=== PATIENT | female | born 1950 | race Asian ===

== ENCOUNTER 2019-04-04 05:53 | Day surgery (SDC) | payer MEDICARE ==
[2019-04-04] MEDS ORDERED: Phenylephrine 2.5% Ophth Soln 5 ML BOT ONE (05:59)
[2019-04-04] MEDS ORDERED: Cyclopentolate 1% Opth Drop 2 ML BOT ONE (05:59)
[2019-04-04] MEDS ORDERED: EPINEPHrine 0.3 MG in Ophthalmic Irrigation Solution 500 ML IVP SCH (06:00)
[2019-04-04] MEDS ORDERED: Midazolam HCl 2 mg/2 ml Vial ONE (06:35)
[2019-04-04] MEDS ORDERED: Fentanyl 100 MCG/2 ML VIAL ONE (06:35)
[2019-04-04] MEDS ORDERED: PROPOFOL 20 ML ONE (06:35)
[2019-04-04] MEDS ORDERED: Bupivacaine 10 ML VIAL ONE (10:19)
[2019-04-04] MEDS ORDERED: Triamcinolone 40 MG/ML VIAL ONE (10:19)
[2019-04-04] MEDS ORDERED: Maxitrol 0.1% Opth Oint 3.5 GM TUBE ONE (10:19)
[2019-04-04] MEDS ORDERED: Lidocaine 4% PF 5 ML AMP ONE (10:19)
[2019-04-04] MEDS ORDERED: Lidocaine 1% PF 5 ML VIAL ONE (10:19)
[2019-04-04] MEDS ORDERED: Indocyanine Green 25 MG/10 ML VIAL ONE (10:19)
[2019-04-04] MEDS ORDERED: CEFAZOLIN 1 GM VIAL ONE (10:19)
--- NOTE | 2019-04-04 11:53 | OP ---
DATE OF PROCEDURE: 04/04/2019 PRINCIPAL PREOPERATIVE DIAGNOSIS: Epiretinal membrane, right eye. POSTOPERATIVE DIAGNOSIS: Epiretinal membrane, right eye. PROCEDURES PERFORMED: 1. 25-gauge pars plana vitrectomy, right eye. 2. Epiretinal membrane/internal limiting membrane complex removal, right eye. ESTIMATED BLOOD LOSS: None. SPECIMENS REMOVED: None. COMPLICATIONS: None. ANESTHESIA: MAC with retrobulbar block. DESCRIPTION OF PROCEDURE: The patient was identified in the preoperative holding area, where the correct eye being the right eye was marked for surgery. The patient was taken to the operating room, where MAC anesthesia was induced. A retrobulbar block was administered to the right eye. The block consisted of 1:1 ratio of 4% lidocaine and 0.75% Marcaine. A total of 5 mL was administered. The right eye was then prepped and draped in the usual sterile ophthalmic fashion for surgery. A wire lid speculum was placed. A standard 25-gauge pars plana vitrectomy platform was fashioned with trocars placed approximately 4 mm from the limbus. The infusion was noted to be within the vitreous cavity prior to being turned on to an infusion pressure of 30 mmHg. The light pipe Micro vitrector was introduced into the eye under visualization with a BIOM viewing system. A careful core and peripheral shave vitrectomies were performed. Following vitrectomy, ICG dye was used to stain the internal limiting membrane. Using the [employer] IL[employer] Forceps, an epiretinal membrane/internal limiting membrane complex removal was performed in a circumferential fashion about the fovea. The peel extended approximately 2 disc diameters in radius from the fovea circumferentially. Following peeling, the Micro vitrector was re-introduced into the eye to remove any residual vitreous debris. A 360-degree scleral depressed exam of the periphery revealed no defects. The cannulas were sequentially removed, and all sclerotomies were noted to be watertight. A subconjunctival injection of Ancef and Kenalog was performed followed by removal of the speculum, and Tobradex ophthalmic ointment was applied followed by light patch and shield. The patient tolerated the procedure well and was taken to the outpatient recovery area in good condition. Job ID: [id number] [facility]
== END 2019-04-04 08:35 | disposition home or self-care (01) ==
LOC: SDC 05:53
PROVIDERS: ATTEND Ophthalmology Retina Specialist
PROC: 08T43ZZ Resection of Right Vitreous, Percutaneous Approach (ICD-10-PCS; principal; 2019-04-04)
PROC: 08NE3ZZ Release Right Retina, Percutaneous Approach (ICD-10-PCS; 2019-04-04)
DX: H35.371 Puckering of macula, right eye (principal)
CPT/HCPCS: J0171; J0690; J2001; J2250; J2704; J3010; J3301; J3490

== ENCOUNTER 2021-04-26 10:32 | Outpatient (CLI) | payer MEDICARE, OTHER | END 2021-04-26 10:33 | disposition home or self-care (01) | LOC: BICMAMMO 10:32 | PROVIDERS: ATTEND Family Medicine | DX: Z12.31 Encounter for screening mammogram for malignant neoplasm of breast (principal) | CPT/HCPCS: 77063; 77067 ==

== ENCOUNTER 2022-07-11 14:16 | Outpatient (CLI) | payer MEDICARE | END 2022-07-11 14:17 | disposition home or self-care (01) | LOC: BICMAMMO 14:16 | PROVIDERS: ATTEND Family Medicine | DX: Z12.31 Encounter for screening mammogram for malignant neoplasm of breast (principal) | CPT/HCPCS: 77063; 77067 ==

== ENCOUNTER 2022-10-14 09:59 | Day surgery (SDC) | payer MEDICARE ==
[2022-10-12 11:03] VITALS: BMI 29.2
== END 2022-10-14 13:46 | disposition home or self-care (01) ==
LOC: MRI 09:59
PROVIDERS: ATTEND Orthopaedic Surgery
DX: M47.815 Spondylosis without myelopathy or radiculopathy, thoracolumbar region (principal); M51.16 Intervertebral disc disorders with radiculopathy, lumbar region; M48.061 Spinal stenosis, lumbar region without neurogenic claudication; M47.26 Other spondylosis with radiculopathy, lumbar region; M25.78 Osteophyte, vertebrae; G89.29 Other chronic pain; E03.9 Hypothyroidism, unspecified; E78.00 Pure hypercholesterolemia, unspecified; Z79.890 Hormone replacement therapy; Z79.82 Long term (current) use of aspirin; Z79.899 Other long term (current) drug therapy
CPT/HCPCS: 72148

== ENCOUNTER 2024-07-22 08:00 | Outpatient (CLI) | payer MEDICARE, MEDICAID ==
[2024-07-22] MEDS ORDERED: Iopamidol 370 76% 100 ML VIAL ONE (12:43)
== END 2024-07-22 08:01 | disposition home or self-care (01) ==
LOC: BICCT 08:00
PROVIDERS: ATTEND Specialist
DX: S03.02XA Dislocation of jaw, left side, initial encounter (principal); M26.642 Arthritis of left temporomandibular joint
CPT/HCPCS: 36415; 70491; 82565

== ENCOUNTER 2025-06-18 13:06 | Outpatient (CLI) | payer OTHER, MEDICAID | END 2025-06-18 13:07 | disposition home or self-care (01) | LOC: BICMAMMO 13:06 | PROVIDERS: ATTEND Family Medicine | DX: Z12.31 Encounter for screening mammogram for malignant neoplasm of breast (principal); M81.0 Age-related osteoporosis without current pathological fracture; M85.851 Other specified disorders of bone density and structure, right thigh; M85.852 Other specified disorders of bone density and structure, left thigh | CPT/HCPCS: 77063; 77067; 77080 ==